=== PATIENT | female | born 1965 | race Caucasian/White ===

== ENCOUNTER 2016-08-28 18:13 | Emergency (ER) | payer MEDICAID ==
[~2016-08-28] VITALS: Ht 162.6 cm; Wt 102.1 kg
[2016-08-28 18:19] VITALS: BP_SYST 115
[2016-08-28 19:04] LABS: BASOPHILS # (AUTO) 0.1 K/uL (0.0-0.2); BASOPHILS % (AUTO) 0.7 % (0.0-2.0); EOSINOPHILS # (AUTO) 0.3 K/uL (0.0-0.4); EOSINOPHILS % (AUTO) 3.4 % (0.0-4.0); HEMATOCRIT 37.5 % (36-48); HEMOGLOBIN 12.8 g/dL (12.0-16.0); LYMPHOCYTES # (AUTO) 2.6 K/uL (1.0-5.5); LYMPHOCYTES % (AUTO) 34.4 % (20.5-51.5); MEAN CORPUSCULAR HEMOGLOBIN 31 pg (27-31); MEAN CORPUSCULAR HGB CONC 34 % (32-36); MEAN CORPUSCULAR VOLUME 90 fL (79.0-98.0); MONOCYTES # (AUTO) 0.4 K/uL (0.0-1.0); MONOCYTES % (AUTO) 4.9 % (1.7-9.3); NEUTROPHILS # (AUTO) 4.1 K/uL (1.8-7.7); NEUTROPHILS % (AUTO) 56.6 % (40.0-70.0); PLATELET COUNT (AUTO) 204 K/uL (130-430); RED BLOOD CELL COUNT(AUTO) 4.17 MIL/uL (4.2-6.2); RED CELL DISTRIBUTION WIDTH 12.5 % (9.0-15.0); WHITE BLOOD COUNT (AUTO) 7.5 K/uL (4.8-10.8)
[2016-08-28 19:06] LABS: CALCIUM 9.6 mg/dL (8.4-11.0); CREATININE 0.96 mg/dL (0.55-1.30); POTASSIUM 3.8 mmol/L (3.5-5.1)
[2016-08-28 19:11] LABS: ALBUMIN 3.8 g/dL (3.4-4.8); TOTAL BILIRUBIN 0.7 mg/dL (0.0-1.0); TOTAL PROTEIN, SERUM 7.3 g/dL (6.4-8.3)
[2016-08-28 19:16] LABS: BILIRUBIN,URINE NEGATIVE (NEGATIVE); BLOOD, URINE NEGATIVE (NEGATIVE); COLOR,URINE YELLOW (YELLOW); GLUCOSE,URINE NEGATIVE (NEGATIVE); KETONES,URINE NEGATIVE (NEGATIVE); LEUKOCYTE ESTERASE ,URINE 1+ (NEGATIVE); NITRITE, URINE NEGATIVE (NEGATIVE); PROTEIN URINE NEGATIVE (NEGATIVE); UROBILINOGEN,URINE 0.2 (0.2-1.0)
[2016-08-28 19:23] LABS: CLARITY/URINE CLEAR (CLEAR); RBC,URINE 0-3 /HPF (0-3)
[2016-08-28 19:24] LABS: BACTERIA,URINE MODERATE /HPF (None Seen)
[2016-08-28 20:06] VITALS: BP_SYST 118
== END 2016-08-28 20:06 | disposition home or self-care (01) ==
LOC: SED 18:13
DX: N39.0 Urinary tract infection, site not specified (principal); R31.9 Hematuria, unspecified; Z88.5 Allergy status to narcotic agent; Z87.442 Personal history of urinary calculi
CPT/HCPCS: 36415; 71250-TC; 80053; 81000-TC; 85025; 87086; 99285

== ENCOUNTER 2017-10-03 18:51 | Emergency (ER) | payer MEDICAID ==
[~2017-10-03] VITALS: Ht 162.6 cm; Wt 99.8 kg
[2017-10-03 19:20] VITALS: BP_SYST 151
--- NOTE | 2017-10-03 19:33 | NUR ---
Placed in room 03 . Placed on marketing analytics lead, blood pressure machine and pulse oximeter. To gown for exam. Side rails up.
--- NOTE | 2017-10-03 19:40 | NUR ---
Patient AAO x4 sitting in bed c/o Left flank pain x 2 weeks radiating to left arm with weakness and dizziness. Patient able to ambulate and verbalize needs, denies chest pain, denies shortness of breath, no acute distress noted. Will continue to monitor.
[2017-10-03 19:59] LABS: BILIRUBIN,URINE NEGATIVE (NEGATIVE); BLOOD, URINE NEGATIVE (NEGATIVE); CLARITY/URINE CLEAR (CLEAR); COLOR,URINE YELLOW (YELLOW); GLUCOSE,URINE NEGATIVE (NEGATIVE); KETONES,URINE 1+ (NEGATIVE); LEUKOCYTE ESTERASE ,URINE NEGATIVE (NEGATIVE); NITRITE, URINE NEGATIVE (NEGATIVE); PROTEIN URINE TRACE (NEGATIVE)
--- NOTE | 2017-10-03 20:08 | NUR ---
MITCHELL Tran at bedside examining patient.
[2017-10-03] MEDS ORDERED: NACL 0.9% 1,000 ML IV ONE (20:30)
[2017-10-03] MEDS ORDERED: KETOROLAC TROMETHAMINE 30 MG VIAL IVP ONE (20:30)
[2017-10-03 21:21] LABS: BASOPHILS % (AUTO) 0.7 % (0.0-2.0); EOSINOPHILS # (AUTO) 0.2 K/uL (0.0-0.4); EOSINOPHILS % (AUTO) 2.9 % (0.0-4.0); HEMATOCRIT 36.1 % (36-48); HEMOGLOBIN 12.6 g/dL (12.0-16.0); LYMPHOCYTES # (AUTO) 3.1 K/uL (1.0-5.5); LYMPHOCYTES % (AUTO) 45.6 % (20.5-51.5); MEAN CORPUSCULAR HEMOGLOBIN 32 pg (27-31); MEAN CORPUSCULAR HGB CONC 35 % (32-36); MEAN CORPUSCULAR VOLUME 91 fL (79.0-98.0); MONOCYTES # (AUTO) 0.4 K/uL (0.0-1.0); MONOCYTES % (AUTO) 6.2 % (1.7-9.3); NEUTROPHILS # (AUTO) 2.9 K/uL (1.8-7.7); NEUTROPHILS % (AUTO) 44.6 % (40.0-70.0); PLATELET COUNT (AUTO) 198 K/uL (130-430); RED BLOOD CELL COUNT(AUTO) 3.96 MIL/uL (4.2-6.2); RED CELL DISTRIBUTION WIDTH 12.1 % (9.0-15.0); WHITE BLOOD COUNT (AUTO) 6.6 K/uL (4.8-10.8)
[2017-10-03 21:27] LABS: CALCIUM 9.1 mg/dL (8.4-11.0); CREATININE 0.78 mg/dL (0.55-1.30); POTASSIUM 3.8 mmol/L (3.5-5.1)
[2017-10-03 21:34] LABS: ALBUMIN 3.7 g/dL (3.4-4.8); TOTAL BILIRUBIN 0.6 mg/dL (0.0-1.0)
[2017-10-03] MEDS ORDERED: LACTULOSE 20 GM/30 ML UDC PO ONE (21:45)
[2017-10-03 22:17] VITALS: BP_SYST 135
--- NOTE | 2017-10-03 22:17 | NUR ---
Patient given written and verbal discharge instructions and verbalizes understanding. ER MD discussed with patient the results and treatment provided. Patient in stable condition. ID arm band removed. IV catheter removed intact and dressing applied, no active bleeding. Rx of Miralax,and cipro given. Patient educated on pain management and to follow up with PMD. Pain Scale 0/10. Opportunity for questions provided and answered. Medication side effect fact sheet provided.
== END 2017-10-03 22:17 | disposition home or self-care (01) ==
LOC: SED 18:51
DX: N20.0 Calculus of kidney (principal); N39.0 Urinary tract infection, site not specified; K59.00 Constipation, unspecified; R03.0 Elevated blood-pressure reading, without diagnosis of hypertension; Z90.49 Acquired absence of other specified parts of digestive tract; Z88.6 Allergy status to analgesic agent; Z88.5 Allergy status to narcotic agent
CPT/HCPCS: 36415; 74176; 80053; 81003; 83690; 85025; 96361; 96374; 99285; J1885; J7030

== ENCOUNTER 2018-07-25 18:14 | Emergency (ER) | payer MEDICAID ==
[~2018-07-25] VITALS: Ht 162.6 cm; Wt 104.3 kg
[2018-07-25 18:21] VITALS: BP_SYST 163
[2018-07-25] MEDS ORDERED: ONDANSETRON HCL 4 MG/2 ML VIAL IVP ONE (18:45)
[2018-07-25] MEDS ORDERED: KETOROLAC TROMETHAMINE 30 MG VIAL IVP ONE (18:45)
[2018-07-25 19:04] LABS: BASOPHILS % (AUTO) 0.6 % (0.0-2.0); EOSINOPHILS # (AUTO) 0.1 K/uL (0.0-0.4); EOSINOPHILS % (AUTO) 2.4 % (0.0-4.0); HEMATOCRIT 37.1 % (36-48); HEMOGLOBIN 12.6 g/dL (12.0-16.0); LYMPHOCYTES # (AUTO) 2.8 K/uL (1.0-5.5); MEAN CORPUSCULAR HEMOGLOBIN 31 pg (27-31); MEAN CORPUSCULAR HGB CONC 34 % (32-36); MEAN CORPUSCULAR VOLUME 92 fL (79.0-98.0); MONOCYTES # (AUTO) 0.3 K/uL (0.0-1.0); MONOCYTES % (AUTO) 5.7 % (1.7-9.3); NEUTROPHILS # (AUTO) 2.8 K/uL (1.8-7.7); NEUTROPHILS % (AUTO) 46.3 % (40.0-70.0); PLATELET COUNT (AUTO) 206 K/uL (130-430); RED BLOOD CELL COUNT(AUTO) 4.04 MIL/uL (4.2-6.2); RED CELL DISTRIBUTION WIDTH 12.7 % (9.0-15.0); WHITE BLOOD COUNT (AUTO) 6.1 K/uL (4.8-10.8)
[2018-07-25 19:10] LABS: CALCIUM 9.6 mg/dL (8.4-11.0); CREATININE 0.79 mg/dL (0.55-1.30); POTASSIUM 3.5 mmol/L (3.5-5.1)
[2018-07-25 19:12] LABS: BILIRUBIN,URINE NEGATIVE (NEGATIVE); BLOOD, URINE NEGATIVE (NEGATIVE); CLARITY/URINE CLEAR (CLEAR); COLOR,URINE YELLOW (YELLOW); GLUCOSE,URINE TRACE (NEGATIVE); KETONES,URINE NEGATIVE (NEGATIVE); LEUKOCYTE ESTERASE ,URINE TRACE (NEGATIVE); NITRITE, URINE NEGATIVE (NEGATIVE); PH,URINE 5.5 (5.0-8.0); PROTEIN URINE NEGATIVE (NEGATIVE)
[2018-07-25 19:14] LABS: ALBUMIN 3.5 g/dL (3.4-4.8); TOTAL BILIRUBIN 0.5 mg/dL (0.0-1.0)
[2018-07-25 19:17] LABS: INR 0.9 (0.8-1.2); PROTHROMBIN TIME 9.4 SECS (9.5-12.5)
[2018-07-25] MEDS ORDERED: KETOROLAC TROMETHAMINE 30 MG VIAL IM ONE (19:30)
[2018-07-25] MEDS ORDERED: ACETAMINOPHEN 325 MG TABLET PO ONE (19:30)
[2018-07-25 19:45] LABS: BACTERIA,URINE FEW /HPF (None Seen); RBC,URINE 0-3 /HPF (0-3); WBC,URINE 0-3 /HPF (0-3)
[2018-07-25 19:46] LABS: MUCUS,URINE None Seen /LPF (None Seen)
[2018-07-25 20:25] VITALS: BP_SYST 147
== END 2018-07-25 20:25 | disposition home or self-care (01) ==
LOC: SED 18:14
DX: R10.30 Lower abdominal pain, unspecified (principal); M79.651 Pain in right thigh; Z87.442 Personal history of urinary calculi
CPT/HCPCS: 36415; 74176; 80053; 81000; 83690; 84484; 85025; 85610; 85730; 87086; 93005; 96372; 99284; J1885

== ENCOUNTER 2019-01-11 16:45 | Emergency (ER) | payer MEDICAID ==
[~2019-01-11] VITALS: Ht 162.6 cm; Wt 104.3 kg
[2019-01-11 16:52] VITALS: BP_SYST 163
[2019-01-11 17:25] LABS: BILIRUBIN,URINE NEGATIVE (NEGATIVE); BLOOD, URINE NEGATIVE (NEGATIVE); COLOR,URINE YELLOW (YELLOW); GLUCOSE,URINE 1+ (NEGATIVE); KETONES,URINE NEGATIVE (NEGATIVE); LEUKOCYTE ESTERASE ,URINE NEGATIVE (NEGATIVE); NITRITE, URINE NEGATIVE (NEGATIVE); PROTEIN URINE TRACE (NEGATIVE); UROBILINOGEN,URINE 0.2 (0.2-1.0)
[2019-01-11 17:31] LABS: CLARITY/URINE SLIGHTLY HAZY (CLEAR)
[2019-01-11 17:39] LABS: RBC,URINE NONE SEEN /HPF (0-3)
[2019-01-11 17:40] LABS: BACTERIA,URINE FEW /HPF (None Seen); MUCUS,URINE 1+ /LPF (None Seen)
--- NOTE | 2019-01-11 18:30 | NUR ---
BROUGHT BACK TO BED #8 AND TRIAGED. REPORT GIVEN TO ROB
--- NOTE | 2019-01-11 18:43 | NUR ---
Patient arrived in the ED c/o sorethroat, swollen lymph nodes, headaches, fevers, nose bleeds, runny nose, hoarse voice, chest pain, pain on left lower abdominal that radiates to the left back, ear pressure, balance issues, bodyaches, and fatigue for 2-3 weeks now - Taking Ibuprofen, Mucinex and Naproxen. She's also c/o burning, frequency and urgency that started 2 weeks ago. Patient is a&o x4, respirations even and unlabored, denied any respiratory distress at this time, VS WNL, pain severity 6-7/10. Patient is sitting up in bed, awake and oriented, speaking in full sentences.
--- NOTE | 2019-01-11 19:10 | NUR ---
ER Dr. Yu at bedside examining patient.
[2019-01-11] MEDS ORDERED: traMADol HCL HCL 50 MG TABLET (ULTRAM) PO ONE (19:15)
--- NOTE | 2019-01-11 19:18 | NUR ---
Report given and care transferred to GUILLERMINA Clifton.
--- NOTE | 2019-01-11 19:35 | NUR ---
Pt refused Tramadol PO and states "All I want is an antibiotic and to go home". Dr. Contreras notified.
--- NOTE | 2019-01-11 19:50 | NUR ---
Patient transported to radiology, accompanied by rad staff.
--- NOTE | 2019-01-11 19:56 | NUR ---
Pt returned in stable condition
[2019-01-11 20:21] LABS: BASOPHILS # (AUTO) 0.1 K/uL (0.0-0.2); BASOPHILS % (AUTO) 0.6 % (0.0-2.0); EOSINOPHILS # (AUTO) 0.2 K/uL (0.0-0.4); EOSINOPHILS % (AUTO) 2.9 % (0.0-4.0); HEMATOCRIT 38.7 % (36-48); HEMOGLOBIN 13.5 g/dL (12.0-16.0); LYMPHOCYTES # (AUTO) 3.2 K/uL (1.0-5.5); LYMPHOCYTES % (AUTO) 39.6 % (20.5-51.5); MEAN CORPUSCULAR HEMOGLOBIN 32 pg (27-31); MEAN CORPUSCULAR HGB CONC 35 % (32-36); MEAN CORPUSCULAR VOLUME 92 fL (79.0-98.0); MONOCYTES # (AUTO) 0.4 K/uL (0.0-1.0); MONOCYTES % (AUTO) 5.4 % (1.7-9.3); NEUTROPHILS # (AUTO) 4.2 K/uL (1.8-7.7); NEUTROPHILS % (AUTO) 51.5 % (40.0-70.0); PLATELET COUNT (AUTO) 208 K/uL (130-430); RED BLOOD CELL COUNT(AUTO) 4.19 MIL/uL (4.2-6.2); RED CELL DISTRIBUTION WIDTH 12.6 % (9.0-15.0); WHITE BLOOD COUNT (AUTO) 8.1 K/uL (4.8-10.8)
[2019-01-11] MEDS ORDERED: PHENAZOPYRIDINE HCL 100 MG TABLET PO ONE (21:00)
[2019-01-11] MEDS ORDERED: CIPROFLOXACIN HCL 500 MG TABLET PO ONE (21:00)
[2019-01-11] MEDS ORDERED: cefTRIAXone 1 GM in LIDOCAINE 1%, 20 ML MDV 2.1 ML IM ONE (21:00)
[2019-01-11 21:06] LABS: CREATININE 0.72 mg/dL (0.55-1.30)
[2019-01-11 21:12] LABS: ALBUMIN 3.8 g/dL (3.4-4.8); TOTAL BILIRUBIN 0.6 mg/dL (0.0-1.0)
[2019-01-11 21:17] VITALS: BP_SYST 142
--- NOTE | 2019-01-11 21:20 | NUR ---
Patient given written and verbal discharge instructions and verbalizes understanding. ER MD discussed with patient the results and treatment provided. Patient in stable condition. ID arm band removed. Rx of Cipro, Ibuprofen, Pyridium given. Patient educated on pain management and to follow up with PMD. Pain Scale 0. Opportunity for questions provided and answered. Medication side effect fact sheet provided.
== END 2019-01-11 21:20 | disposition home or self-care (01) ==
LOC: SED 16:45
DX: N39.0 Urinary tract infection, site not specified (principal); N23 Unspecified renal colic; Z88.5 Allergy status to narcotic agent
CPT/HCPCS: 36415; 71045; 74176; 80053; 81000; 83605; 85025; 87040; 87086; 96372; 99284; J0696; J2001

== ENCOUNTER 2020-11-16 18:04 | Emergency (ER) | payer MEDICAID, SELFPAY ==
[~2020-11-16] VITALS: Ht 162.6 cm; Wt 102.1 kg
[2020-11-16 18:38] VITALS: BP_SYST 143
--- NOTE | 2020-11-16 18:46 | NUR ---
aneesh and asked to wait in the waiting room
--- NOTE | 2020-11-16 19:11 | NUR ---
Patient to ER bed 7 to gown for evaluation. Side rails up.
--- NOTE | 2020-11-16 19:19 | NUR ---
Pt arrived to ER for complaints of stomach cramp and pain starting today morning. pt states 3/10 pain now. Her mother last night and she has been feeling weird since. yesterday she had left leg pain and right lower lobe and kidney pains. pt self medicated with 81mg aspirin and 1000mg tylenol at 1700 today. states much of her family has covid and she is worried maybe she recieved it.
[2020-11-16] MEDS ORDERED: IBUPROFEN 600 MG TABLET PO ONE (19:30)
--- NOTE | 2020-11-16 19:41 | NUR ---
# 20 gauge angiocath placed to LAC. Use of asceptic technique. Opsite placed over site. Blood return noted. Blood for lab drawn from site. Flushed with 10 cc of normal saline. No evidence of infiltration noted. Patient tolerated well.
[2020-11-16 19:49] LABS: BASOPHILS % (AUTO) 0.6 % (0.0-2.0); EOSINOPHILS # (AUTO) 0.2 K/uL (0.0-0.4); EOSINOPHILS % (AUTO) 2.3 % (0.0-4.0); HEMATOCRIT 36.8 % (36-48); HEMOGLOBIN 12.7 g/dL (12.0-16.0); LYMPHOCYTES # (AUTO) 3.3 K/uL (1.0-5.5); MEAN CORPUSCULAR HEMOGLOBIN 32 pg (27-31); MEAN CORPUSCULAR HGB CONC 35 % (32-36); MEAN CORPUSCULAR VOLUME 92 fL (79.0-98.0); MONOCYTES # (AUTO) 0.4 K/uL (0.0-1.0); MONOCYTES % (AUTO) 5.8 % (1.7-9.3); NEUTROPHILS # (AUTO) 3.5 K/uL (1.8-7.7); NEUTROPHILS % (AUTO) 47.3 % (40.0-70.0); PLATELET COUNT (AUTO) 200 K/uL (130-430); RED BLOOD CELL COUNT(AUTO) 3.99 MIL/uL (4.2-6.2); WHITE BLOOD COUNT (AUTO) 7.5 K/uL (4.8-10.8)
[2020-11-16 19:57] LABS: CALCIUM 9.6 mg/dL (8.4-11.0); CREATININE 0.77 mg/dL (0.55-1.30); POTASSIUM 3.7 mmol/L (3.5-5.1)
[2020-11-16 20:03] LABS: TOTAL BILIRUBIN 1.3 mg/dL (0.0-1.0)
[2020-11-16 20:04] LABS: ALBUMIN 3.8 g/dL (3.4-4.8)
[2020-11-16 20:28] LABS: BILIRUBIN,URINE NEGATIVE (NEGATIVE); BLOOD, URINE NEGATIVE (NEGATIVE); CLARITY/URINE CLEAR (CLEAR); COLOR,URINE YELLOW (YELLOW); GLUCOSE,URINE NEGATIVE (NEGATIVE); KETONES,URINE NEGATIVE (NEGATIVE); LEUKOCYTE ESTERASE ,URINE 1+ (NEGATIVE); NITRITE, URINE NEGATIVE (NEGATIVE); PROTEIN URINE NEGATIVE (NEGATIVE); UROBILINOGEN,URINE 0.2 (0.2-1.0)
[2020-11-16 20:37] LABS: BACTERIA,URINE FEW /HPF (None Seen); RBC,URINE 0-3 /HPF (0-3)
--- NOTE | 2020-11-16 20:48 | NUR ---
US AT BEDSIDE
[2020-11-16] MEDS ORDERED: cefTRIAXone 1 GM in D5W 50 ML IV ONE (21:00)
[2020-11-16] MEDS ORDERED: cefTRIAXone 1 GM VIAL ONE (21:12)
[2020-11-16] MEDS ORDERED: cefdinir (21:17)
[2020-11-16] MEDS ORDERED: cefdinir PO (21:17)
[2020-11-16] MEDS ORDERED: IBUP-1969 PO ×3 (21:50→21:54)
[2020-11-16] MEDS ORDERED: PHEN-726 PO (21:53)
[2020-11-16 22:07] VITALS: BP_SYST 134
--- NOTE | 2020-11-16 22:08 | NUR ---
Patient given written and verbal discharge instructions and verbalizes understanding. ER MD discussed with patient the results and treatment provided. Patient in stable condition. ID arm band removed. IV catheter removed intact and dressing applied, no active bleeding. Rx of pyrimidine, cefdinir given. Patient educated on pain management and to follow up with PMD. Pain Scale 2/10. Opportunity for questions provided and answered. Medication side effect fact sheet provided.
[2020-11-16] MEDS ORDERED: MORPHINE 4 MG INJ. 4 MG/ML VIAL IVP ONE (22:30)
== END 2020-11-16 22:08 | disposition home or self-care (01) ==
LOC: SED 18:04
DX: N12 Tubulo-interstitial nephritis, not specified as acute or chronic (principal); M79.652 Pain in left thigh; Z88.5 Allergy status to narcotic agent; Z20.822 Contact with and (suspected) exposure to COVID-19
CPT/HCPCS: 36415; 80053; 81000; 83690; 84484; 85025; 87086; 87426; 93005; 93971; 96365; 99285; J0696; J2270

== ENCOUNTER 2021-05-17 17:03 | Emergency (ER) | payer MEDICAID, SELFPAY ==
[~2021-05-17] VITALS: Ht 162.6 cm; Wt 97.5 kg
[2021-05-17 17:03] VITALS: BP_SYST 137
[~2021-05-17 17:03] MED LIST: IBUP-1969 PO; PHEN-726 PO; cefdinir PO
--- NOTE | 2021-05-17 17:04 | NUR ---
BROUGHT BACK TO BED #8 AND REPORT GIVEN TO TWILA
--- NOTE | 2021-05-17 17:13 | NUR ---
Pt. came in with c/o left sided flank pain for 1 1/2 weeks, rates it 5 to 6 on pain scale but worsens at times,has hx. of kidney stones and pt. states it feels similar to passing one
--- NOTE | 2021-05-17 17:47 | NUR ---
MITCHELL Ramirez at bedside examining patient.
[2021-05-17] MEDS ORDERED: NACL 0.9% 1,000 ML IV ONE ×2 (18:00→19:45)
[2021-05-17] MEDS ORDERED: KETOROLAC TROMETHAMINE 30 MG VIAL IVP ONE (18:00)
--- NOTE | 2021-05-17 18:18 | NUR ---
Patient transported to radiology via wheelchair, accompanied by staff.
[2021-05-17 18:35] LABS: CALCIUM 9.9 mg/dL (8.4-11.0); CREATININE 0.71 mg/dL (0.55-1.30)
[2021-05-17 18:42] LABS: BILIRUBIN,URINE NEGATIVE (NEGATIVE); BLOOD, URINE NEGATIVE (NEGATIVE); CLARITY/URINE CLEAR (CLEAR); COLOR,URINE YELLOW (YELLOW); GLUCOSE,URINE 1+ (NEGATIVE); KETONES,URINE NEGATIVE (NEGATIVE); LEUKOCYTE ESTERASE ,URINE NEGATIVE (NEGATIVE); PROTEIN URINE NEGATIVE (NEGATIVE); UROBILINOGEN,URINE 0.2 (0.2-1.0)
[2021-05-17 18:50] LABS: ALBUMIN 3.7 g/dL (3.4-4.8); TOTAL BILIRUBIN 0.7 mg/dL (0.0-1.0)
[2021-05-17 18:52] LABS: HEMOGLOBIN 13.6 g/dL (12.0-16.0)
[2021-05-17 18:53] LABS: NITRITE, URINE NEGATIVE (NEGATIVE)
[2021-05-17 18:55] LABS: BACTERIA,URINE FEW /HPF (None Seen); RBC,URINE 0-3 /HPF (0-3); WBC,URINE 0-3 /HPF (0-3)
[2021-05-17 18:57] LABS: BASOPHILS # (AUTO) 0.1 K/uL (0.0-0.2); BASOPHILS % (AUTO) 0.8 % (0.0-2.0); EOSINOPHILS # (AUTO) 0.1 K/uL (0.0-0.4); EOSINOPHILS % (AUTO) 2.4 % (0.0-4.0); HEMATOCRIT 40.1 % (36-48); LYMPHOCYTES # (AUTO) 2.5 K/uL (1.0-5.5); LYMPHOCYTES % (AUTO) 40.6 % (20.5-51.5); MEAN CORPUSCULAR HEMOGLOBIN 31 pg (27-31); MEAN CORPUSCULAR HGB CONC 34 % (32-36); MEAN CORPUSCULAR VOLUME 91 fL (79.0-98.0); MONOCYTES # (AUTO) 0.3 K/uL (0.0-1.0); MONOCYTES % (AUTO) 4.4 % (1.7-9.3); NEUTROPHILS # (AUTO) 3.1 K/uL (1.8-7.7); NEUTROPHILS % (AUTO) 51.8 % (40.0-70.0); PLATELET COUNT (AUTO) 191 K/uL (130-430); RED BLOOD CELL COUNT(AUTO) 4.39 MIL/uL (4.2-6.2); RED CELL DISTRIBUTION WIDTH 12.6 % (9.0-15.0)
--- NOTE | 2021-05-17 19:06 | NUR ---
RECIEVED CHANGE OF SHIFT REPORT FROM GUILLERMINA MATTSON FOR CONTINUITY OF CARE. PT IN BED RESTING WITH NORMAL SALINE INFUSING. PT REPORTS PAIN 08/14, MADE AWARE.
[2021-05-17] MEDS ORDERED: IBUP-1969 PO (19:36)
[2021-05-17] MEDS ORDERED: CEFU250T85 PO (19:36)
[2021-05-17] MEDS ORDERED: cefTRIAXone 1 GM in D5W 50 ML IV ONE (19:45)
[2021-05-17] MEDS ORDERED: cefTRIAXone 1 GM VIAL ONE (19:51)
[2021-05-17 19:55] VITALS: BP_SYST 164
--- NOTE | 2021-05-17 21:02 | NUR ---
PT COMPLAINT OF PAIN, MD AT THE BEDSIDE FOR FOLLOW UP.
[2021-05-17] MEDS ORDERED: ACETAMINOPHEN 500 MG TABLET ONE (21:44)
[2021-05-17] MEDS ORDERED: ACETAMINOPHEN 500 MG TABLET PO ONE (21:45)
--- NOTE | 2021-05-17 21:54 | NUR ---
PT PROVIDED TYLENOL FOR PAIN, PT NOTIFIED OF PENDING DISCHARGE. INSTRUCTED PT ON PRESCRIPTION AND HOMECARE. ALL QUESTIONS ANSWERED. PT VERBALIZED UNDERSTANDING. IV REMOVED WITH CATHTER INTACT. CLEAN GAUZE APPLIED TO SITE. PT DISCHARGED IN STABLE CONDITION, AMBULATORY WITH ALL BELONGINGS.
[2021-05-17] MEDS ORDERED: PHEN-726 PO (22:06)
== END 2021-05-17 21:53 | disposition home or self-care (01) ==
LOC: SED 17:03
DX: R10.9 Unspecified abdominal pain (principal); Z79.899 Other long term (current) drug therapy; Z88.6 Allergy status to analgesic agent; Z87.442 Personal history of urinary calculi
CPT/HCPCS: 36415; 72131; 74176; 76376; 80053; 81000; 82962; 83605; 85025; 87040; 96361; 96365; 96375; 99284; J0696; J1885; J7030

== ENCOUNTER 2021-07-15 12:02 | Emergency (ER) | payer MEDICAID ==
[~2021-07-15] VITALS: Ht 162.6 cm; Wt 99.8 kg
[~2021-07-15 12:02] MED LIST changes: +CEFU250T85 PO
[2021-07-15 12:09] VITALS: BP_SYST 137
[2021-07-15] MEDS ORDERED: NACL 0.9% 1,000 ML IV ONE (12:45)
[2021-07-15 12:49] LABS: BILIRUBIN,URINE NEGATIVE (NEGATIVE); BLOOD, URINE NEGATIVE (NEGATIVE); CLARITY/URINE CLEAR (CLEAR); COLOR,URINE YELLOW (YELLOW); GLUCOSE,URINE NEGATIVE (NEGATIVE); KETONES,URINE TRACE (NEGATIVE); LEUKOCYTE ESTERASE ,URINE NEGATIVE (NEGATIVE); NITRITE, URINE NEGATIVE (NEGATIVE); PH,URINE 5.5 (5.0-8.0); PROTEIN URINE NEGATIVE (NEGATIVE); UROBILINOGEN,URINE 0.2 (0.2-1.0)
[2021-07-15 13:03] LABS: BASOPHILS # (AUTO) 0.1 K/uL (0.0-0.2); EOSINOPHILS # (AUTO) 0.1 K/uL (0.0-0.4); EOSINOPHILS % (AUTO) 2.4 % (0.0-4.0); HEMATOCRIT 37.5 % (36-48); HEMOGLOBIN 12.8 g/dL (12.0-16.0); LYMPHOCYTES # (AUTO) 2.3 K/uL (1.0-5.5); LYMPHOCYTES % (AUTO) 41.7 % (20.5-51.5); MEAN CORPUSCULAR HEMOGLOBIN 31 pg (27-31); MEAN CORPUSCULAR HGB CONC 34 % (32-36); MEAN CORPUSCULAR VOLUME 92 fL (79.0-98.0); MONOCYTES # (AUTO) 0.3 K/uL (0.0-1.0); MONOCYTES % (AUTO) 4.7 % (1.7-9.3); NEUTROPHILS # (AUTO) 2.8 K/uL (1.8-7.7); NEUTROPHILS % (AUTO) 50.2 % (40.0-70.0); PLATELET COUNT (AUTO) 193 K/uL (130-430); RED BLOOD CELL COUNT(AUTO) 4.08 MIL/uL (4.2-6.2); RED CELL DISTRIBUTION WIDTH 13.3 % (9.0-15.0); WHITE BLOOD COUNT (AUTO) 5.5 K/uL (4.8-10.8)
[2021-07-15 13:28] LABS: CALCIUM 9.2 mg/dL (8.4-11.0); CREATININE 0.78 mg/dL (0.55-1.30); POTASSIUM 4.1 mmol/L (3.5-5.1)
[2021-07-15 13:34] LABS: ALBUMIN 3.7 g/dL (3.4-4.8); TOTAL BILIRUBIN 0.7 mg/dL (0.0-1.0)
[2021-07-15] MEDS ORDERED: AMOX-423 PO (14:02)
[2021-07-15] MEDS ORDERED: METR-154 PO (14:02)
[2021-07-15 15:55] VITALS: BP_SYST 133
== END 2021-07-15 15:55 | disposition home or self-care (01) ==
LOC: SED 12:02
DX: K62.5 Hemorrhage of anus and rectum (principal); E11.9 Type 2 diabetes mellitus without complications; Z88.5 Allergy status to narcotic agent; Z88.6 Allergy status to analgesic agent
CPT/HCPCS: 36415; 76376; 80053; 81003; 83690; 85025; 93005; 99284; 99285

== ENCOUNTER 2021-09-29 17:26 | Emergency (ER) | payer MEDICAID ==
[~2021-09-29] VITALS: Ht 162.6 cm; Wt 90.7 kg
[~2021-09-29 17:26] MED LIST changes: +AMOX-423 PO; +METR-154 PO
[2021-09-29 17:54] VITALS: BP_SYST 133
--- NOTE | 2021-09-29 18:00 | NUR ---
Pt brought by daughter, ambulatory, pt presents to ER with R head pain and small LAC after she hit the head with a car door, pt fell to the floor, skin pink and warm, respirations even and unlabored, will cont to monitor.
--- NOTE | 2021-09-29 18:10 | NUR ---
Dr Alegria evaluating patient at bedside
--- NOTE | 2021-09-29 19:23 | NUR ---
Report given to Marin SARMIENTO
[2021-09-29 19:33] VITALS: BP_SYST 125
--- NOTE | 2021-09-29 19:33 | NUR ---
Patient given written and verbal discharge instructions and verbalizes understanding. ER MD discussed with patient the results and treatment provided. Patient in stable condition. ID arm band removed. NO Rx of given. Patient educated on pain management and to follow up with PMD. Pain Scale 0/10. Opportunity for questions provided and answered. Medication side effect fact sheet provided.
== END 2021-09-29 19:33 | disposition home or self-care (01) ==
LOC: SED 17:26
DX: S06.0X0A Concussion without loss of consciousness, initial encounter (principal); S00.81XA Abrasion of other part of head, initial encounter; R42 Dizziness and giddiness; W22.8XXA Striking against or struck by other objects, initial encounter; Y93.89 Activity, other specified; Y92.89 Other specified places as the place of occurrence of the external cause; Y99.8 Other external cause status
CPT/HCPCS: 70450-TC; 76376; 99284

== ENCOUNTER 2022-04-13 14:03 | Emergency (ER) | payer MEDICAID ==
[~2022-04-13] VITALS: Ht 162.6 cm; Wt 93.0 kg
[2022-04-13 14:08] VITALS: BP_SYST 149
--- NOTE | 2022-04-13 14:31 | NUR ---
PT BIB SELF AWAKE AND ALERT, AOX4. NO SOB OR DISTRESS. PT C/O L FLANK PAIN, DIZZYNESS, CHEST PAIN, AND NUMBNESS TO HER HAND X4 DAYS. PT DENIES N/V. PT HAS HX KIDNEY STONES, HTN, PRE DIABETIC, AAA.
--- NOTE | 2022-04-13 14:34 | NUR ---
MD DR DOUGLASS AT BEDSIDE
[2022-04-13] MEDS ORDERED: ONDANSETRON HCL 4 MG/2 ML VIAL IVP ONE (14:45)
[2022-04-13] MEDS ORDERED: fentaNYL CITRATE/PF 100 MCG/2 ML AMP IVP ONE (14:45)
[2022-04-13 15:26] LABS: ANION GAP 11 (5-15); CALCIUM 10.3 mg/dL (8.4-11.0); CHLORIDE 102 mmol/L (98-107); CREATININE 0.76 mg/dL (0.55-1.30); GLUCOSE 132 mg/dL (70-99); UREA NITROGEN, BLOOD 18 mg/dL (8-21)
[2022-04-13 15:29] LABS: GFR AFRICAN AMERICAN 101 mL/min (>90)
[2022-04-13] MEDS ORDERED: KETOROLAC TROMETHAMINE 30 MG VIAL IVP ONE (15:30)
--- NOTE | 2022-04-13 15:30 | NUR ---
Went to medicate patient with Zofran and Fentanyl. Patient refused and requesting non narcotic medication. pain 4/10 to LLQ abdomen. MD notified and new orders placed. Medication wasted in pyxis.
[2022-04-13 15:32] LABS: BASOPHILS # (AUTO) 0.1 K/uL (0.0-0.2); BASOPHILS % (AUTO) 0.9 % (0.0-2.0); EOSINOPHILS # (AUTO) 0.2 K/uL (0.0-0.4); EOSINOPHILS % (AUTO) 3.1 % (0.0-4.0); HEMATOCRIT 39.4 % (36-48); HEMOGLOBIN 13.6 g/dL (12.0-16.0); LYMPHOCYTES # (AUTO) 2.5 K/uL (1.0-5.5); LYMPHOCYTES % (AUTO) 43.2 % (20.5-51.5); MEAN CORPUSCULAR HEMOGLOBIN 32 pg (27-31); MEAN CORPUSCULAR HGB CONC 34 % (32-36); MEAN CORPUSCULAR VOLUME 92 fL (79.0-98.0); MONOCYTES # (AUTO) 0.3 K/uL (0.0-1.0); NEUTROPHILS # (AUTO) 2.7 K/uL (1.8-7.7); NEUTROPHILS % (AUTO) 46.8 % (40.0-70.0); PLATELET COUNT (AUTO) 192 K/uL (130-430); RED BLOOD CELL COUNT(AUTO) 4.28 MIL/uL (4.2-6.2); RED CELL DISTRIBUTION WIDTH 13.7 % (9.0-15.0); WHITE BLOOD COUNT (AUTO) 5.8 K/uL (4.8-10.8)
[2022-04-13 15:33] LABS: ALANINE AMINOTRANSFERASE 32 U/L (12-78); ALBUMIN 4.2 g/dL (3.4-4.8); ASPARTATE AMINOTRANSFERASE 22 U/L (10-37); TOTAL BILIRUBIN 0.9 mg/dL (0.0-1.0)
[2022-04-13 15:56] LABS: BILIRUBIN,URINE NEGATIVE (NEGATIVE); BLOOD, URINE NEGATIVE (NEGATIVE); CLARITY/URINE CLEAR (CLEAR); COLOR,URINE YELLOW (YELLOW); GLUCOSE,URINE NEGATIVE (NEGATIVE); KETONES,URINE TRACE (NEGATIVE); LEUKOCYTE ESTERASE ,URINE TRACE (NEGATIVE); NITRITE, URINE NEGATIVE (NEGATIVE); PH,URINE 5.5 (5.0-8.0); PROTEIN URINE NEGATIVE (NEGATIVE); UROBILINOGEN,URINE 0.2 (0.2-1.0)
[2022-04-13 16:18] LABS: RBC,URINE 0-3 /HPF (0-3)
[2022-04-13 16:19] LABS: BACTERIA,URINE FEW /HPF (None Seen); MUCUS,URINE None Seen /LPF (None Seen)
[2022-04-13] MEDS ORDERED: LIDO1ADH71 TD (17:54)
[2022-04-13] MEDS ORDERED: IBUP-1969 PO (17:54)
[2022-04-13] MEDS ORDERED: CYCL10TA24 PO (17:54)
--- NOTE | 2022-04-13 18:15 | NUR ---
DR. YU AT BEDSIDE
[2022-04-13] MEDS ORDERED: CIPR500T5 PO (18:20)
--- NOTE | 2022-04-13 18:23 | NUR ---
Patient given written and verbal discharge instructions and verbalizes understanding. ER MD YU discussed with patient the results and treatment provided. Patient in stable condition. ID arm band removed. IV catheter removed intact and dressing applied, no active bleeding. Rx of CYCLOBENZAPRINE HCL,IBUPROFEN,LIDOCANE AND CIPRO given. Patient educated on pain management and to follow up with PMD. Pain Scale . Opportunity for questions provided and answered. Medication side effect fact sheet provided.
[2022-04-13 18:27] VITALS: BP_SYST 133
[2022-04-13] MEDS ORDERED: PHEN-726 PO (18:27)
== END 2022-04-13 18:25 | disposition home or self-care (01) ==
LOC: SED 14:03
DX: N39.0 Urinary tract infection, site not specified (principal); R07.9 Chest pain, unspecified; R10.9 Unspecified abdominal pain; R53.1 Weakness; R50.9 Fever, unspecified; E11.9 Type 2 diabetes mellitus without complications; Z88.5 Allergy status to narcotic agent; Z88.6 Allergy status to analgesic agent; Z79.899 Other long term (current) drug therapy
CPT/HCPCS: 80053; 81000; 85025; 85379; 87086; 84484; 36415; 93005; 71045; 76376; 74176; 99285; 96374; J1885; J3010; J2405

== ENCOUNTER 2023-03-24 15:55 | Emergency (ER) | payer MEDICAID ==
[~2023-03-24] VITALS: Ht 162.6 cm; Wt 99.8 kg
[~2023-03-24 15:55] MED LIST changes: +CIPR500T5 PO; +CYCL10TA24 PO; +LIDO1ADH71 TD
[2023-03-24 16:06] VITALS: BP_SYST 128; PULSE 74; RESP 17; TEMP 97.9; O2SAT 97
[2023-03-24 17:59] LABS: ALBUMIN 3.8 g/dL (3.4-4.8); BILIRUBIN,DIRECT 0.2 mg/dL (0.0-0.3); CREATININE 0.72 mg/dL (0.55-1.30); POTASSIUM 3.8 mmol/L (3.5-5.1); TOTAL BILIRUBIN 0.8 mg/dL (0.0-1.0); TOTAL PROTEIN, SERUM 7.8 g/dL (6.4-8.3)
[2023-03-24] MEDS ORDERED: KETOROLAC TROMETHAMINE 15 MG VIAL IVP ONE (18:00)
[2023-03-24] MEDS ORDERED: ACETAMINOPHEN 500 MG TABLET PO ONE (18:00)
[2023-03-24 18:33] LABS: BASOPHILS % (AUTO) 0.5 % (0.0-2.0); EOSINOPHILS # (AUTO) 0.2 K/uL (0.0-0.4); EOSINOPHILS % (AUTO) 2.5 % (0.0-4.0); HEMATOCRIT 38.7 % (36-48); HEMOGLOBIN 13.4 g/dL (12.0-16.0); LYMPHOCYTES # (AUTO) 2.9 K/uL (1.0-5.5); LYMPHOCYTES % (AUTO) 39.1 % (20.5-51.5); MEAN CORPUSCULAR HEMOGLOBIN 32 pg (27-31); MEAN CORPUSCULAR HGB CONC 35 % (32-36); MEAN CORPUSCULAR VOLUME 92 fL (79.0-98.0); MONOCYTES # (AUTO) 0.4 K/uL (0.0-1.0); MONOCYTES % (AUTO) 4.8 % (1.7-9.3); NEUTROPHILS # (AUTO) 3.9 K/uL (1.8-7.7); NEUTROPHILS % (AUTO) 53.1 % (40.0-70.0); PLATELET COUNT (AUTO) 207 K/uL (130-430); RED BLOOD CELL COUNT(AUTO) 4.19 MIL/uL (4.2-6.2); RED CELL DISTRIBUTION WIDTH 12.7 % (9.0-15.0); WHITE BLOOD COUNT (AUTO) 7.4 K/uL (4.8-10.8)
[2023-03-24 19:26] LABS: BILIRUBIN,URINE NEGATIVE (NEGATIVE); BLOOD, URINE NEGATIVE (NEGATIVE); CLARITY/URINE CLEAR (CLEAR); COLOR,URINE YELLOW (YELLOW); GLUCOSE,URINE NEGATIVE (NEGATIVE); KETONES,URINE NEGATIVE (NEGATIVE); LEUKOCYTE ESTERASE ,URINE NEGATIVE (NEGATIVE); NITRITE, URINE NEGATIVE (NEGATIVE); PROTEIN URINE NEGATIVE (NEGATIVE); UROBILINOGEN,URINE 0.2 (0.2-1.0)
[2023-03-24] MEDS ORDERED: PHEN-726 PO (20:29)
[2023-03-24 21:19] VITALS: BP_SYST 125; PULSE 73; RESP 17; TEMP 97.8; O2SAT 97
== END 2023-03-24 21:19 | disposition home or self-care (01) ==
LOC: SED 15:55
DX: R10.32 Left lower quadrant pain (principal); R30.0 Dysuria; E11.9 Type 2 diabetes mellitus without complications; Z88.5 Allergy status to narcotic agent; Z85.828 Personal history of other malignant neoplasm of skin; Z79.899 Other long term (current) drug therapy
CPT/HCPCS: 99285; 74176; 96374; 80076; 80048; 81001; 83690; 85025; 36415; 76376; 81003; J1885

== ENCOUNTER 2023-09-28 11:17 | Emergency (ER) | payer MEDICAID ==
[~2023-09-28] VITALS: Ht 162.6 cm; Wt 94.3 kg
[2023-09-28 11:21] VITALS: BP_SYST 130; PULSE 67; RESP 16; TEMP 97.6; O2SAT 97
[2023-09-28] MEDS ORDERED: fentaNYL CITRATE/PF 100 MCG/2 ML AMP IVP ONE (11:45)
[2023-09-28] MEDS ORDERED: ONDANSETRON HCL 4 MG/2 ML VIAL IVP ONE (11:45)
[2023-09-28] MEDS: NACL 0.9% 1,000 ML IV ONE (12:03)
[2023-09-28 12:06] LABS: BASOPHILS # (AUTO) 0.1 K/uL (0.0-0.2); BASOPHILS % (AUTO) 1.1 % (0.0-2.0); EOSINOPHILS # (AUTO) 0.2 K/uL (0.0-0.4); EOSINOPHILS % (AUTO) 2.9 % (0.0-4.0); HEMATOCRIT 39.5 % (36-48); HEMOGLOBIN 13.5 g/dL (12.0-16.0); LYMPHOCYTES # (AUTO) 2.5 K/uL (1.0-5.5); LYMPHOCYTES % (AUTO) 38.1 % (20.5-51.5); MEAN CORPUSCULAR HEMOGLOBIN 32 pg (27-31); MEAN CORPUSCULAR HGB CONC 34 % (32-36); MEAN CORPUSCULAR VOLUME 93 fL (79.0-98.0); MONOCYTES # (AUTO) 0.4 K/uL (0.0-1.0); MONOCYTES % (AUTO) 6.5 % (1.7-9.3); NEUTROPHILS # (AUTO) 3.4 K/uL (1.8-7.7); NEUTROPHILS % (AUTO) 51.4 % (40.0-70.0); PLATELET COUNT (AUTO) 213 K/uL (130-430); RED BLOOD CELL COUNT(AUTO) 4.26 MIL/uL (4.2-6.2); RED CELL DISTRIBUTION WIDTH 13.3 % (9.0-15.0); WHITE BLOOD COUNT (AUTO) 6.6 K/uL (4.8-10.8)
[2023-09-28 12:13] LABS: BILIRUBIN,URINE NEGATIVE (NEGATIVE); BLOOD, URINE NEGATIVE (NEGATIVE); CLARITY/URINE CLEAR (CLEAR); COLOR,URINE YELLOW (YELLOW); GLUCOSE,URINE NEGATIVE (NEGATIVE); KETONES,URINE TRACE (NEGATIVE); LEUKOCYTE ESTERASE ,URINE NEGATIVE (NEGATIVE); NITRITE, URINE NEGATIVE (NEGATIVE); PROTEIN URINE NEGATIVE (NEGATIVE); UROBILINOGEN,URINE 0.2 (0.2-1.0)
[2023-09-28 12:22] LABS: CALCIUM 9.9 mg/dL (8.4-11.0); CREATININE 0.71 mg/dL (0.55-1.30)
[2023-09-28 12:26] LABS: PROTHROMBIN TIME 10.3 SECS (9.5-12.5)
[2023-09-28] MEDS ORDERED: ANURH RC (13:56)
[2023-09-28] MEDS ORDERED: DOCU-144 PO (13:56)
[2023-09-28 15:28] VITALS: BP_SYST 127; PULSE 67; RESP 16; TEMP 97.6; O2SAT 97
== END 2023-09-28 15:28 | disposition home or self-care (01) ==
LOC: SED 11:17
DX: K62.5 Hemorrhage of anus and rectum (principal); K64.8 Other hemorrhoids; R10.32 Left lower quadrant pain; Z85.828 Personal history of other malignant neoplasm of skin; Z88.5 Allergy status to narcotic agent; Z88.6 Allergy status to analgesic agent; Z79.899 Other long term (current) drug therapy; Z79.2 Long term (current) use of antibiotics
CPT/HCPCS: 99285; 74177; 96360; 96361; 80048; 81001; 85025; 85610; 85730; 36415; Q9967; J7030; 81003